=== PATIENT | female | born 1965 | race Caucasian/White ===

== ENCOUNTER 2019-05-30 08:30 | Inpatient (IN) | payer MEDICARE ==
[2019-05-30] VITALS (15 sets, daily range): BP systolic 107–190; BP diastolic 65–100
[~2019-05-30] VITALS: Ht 165.1 cm; Wt 50.3 kg
--- NOTE | ~2019-05-30 | CON ---
[place], [place] REPORT OF CONSULTATION NAME: MARTHA ABDI UNIT #: [id number] ROOM: 420 DOCTOR: RAJESH RIVERA MD BIRTHDATE: [birth year] DOS: 05/30/2019 GASTROENDOSCOPIC REPORT HISTORY OF PRESENT ILLNESS: A 54-year-old patient who has presented with chief complaint of lethargy, confusion, incoherency and the patient was admitted through the Emergency Room. I have been asked for assessment of the patient in this regard of anemia, hemoglobin of 6, hematocrit 23 with microcytic indices. Her INR was 1.1. Ethyl alcohol less than 3. Comprehensive metabolic panel: GFR greater than 60. Electrolytes balanced. Liver function tests normal. Serum ammonia has been 81. The patient not producing any history, mentally unable. PAST MEDICAL HISTORY: Gastroesophageal reflux, cirrhosis, colon cancer. Apparently, per records, scoliosis, neuropathy, and peptic ulcer disease. PAST SURGICAL HISTORY: Colon resection. SOCIAL HISTORY: Alcohol heavy consumption. Nonsmoker. ALLERGIES: No known medications. MEDICATIONS: List Xifaxan and lactulose. REVIEW OF SYSTEMS: Cannot be obtained from her meaningfully. PHYSICAL EXAMINATION: GENERAL: Relatively frail patient. HEENT: Head normocephalic, nontraumatic. Mouth and buccal mucosa benign. NECK: Supple, no thyromegaly, no cervical lymphadenopathy. CHEST: Symmetric anatomy, equal expansion. No wheeze, no rhonchi. HEART: Normal sinus rhythm, no gallop, no murmur. ABDOMEN: Soft. No hepato-organomegaly. Bowel sounds present. No pulsatile mass. EXTREMITIES: No cyanosis, no pedal edema. NEUROLOGIC: Alert, disoriented. LABORATORY DATA: Reviewed. Records reviewed. IMPRESSION: Profound anemia, cirrhotic history with hepatic encephalopathy. EtOH history. PLAN AND DISCUSSION: Endoscopic assessment of upper GI tract in view of profound anemia, hemoglobin 6. [place], [place] REPORT OF CONSULTATION NAME: MARTHA ABDI UNIT #: [id number] ROOM: 420 DOCTOR: RAJESH RIVERA MD BIRTHDATE: [birth year] NASROLLAH JAHDI, MD CM:CONSTR:REPORT OF CONSULTATION 1819 05/31/19 0135 interface
--- NOTE | ~2019-05-30 | O ---
[place], [place] OPERATIVE NOTE NAME: MARTHA BADI UNIT #: [id number] ROOM: 420 DOCTOR: RAJESH RIVERA MD BIRTHDATE: [birth year] DOS: 05/30/2019 INDICATIONS: A 54-year-old patient who has presented with confusion, profound anemia, undergoing investigation. PROCEDURE: Today's procedure part of investigation is panendoscopy plus biopsy. PREMEDICATION: Propofol. SCOPE: Olympus forward-viewing gastroscope Q10 video. REPORT: After putting the patient in left lateral position and application of lubricant to the scope, the scope was introduced. Thereafter, under direct visualization, advanced through the length of esophagus without difficulty. Gastric pouch was entered. Evidence of gastritis and presence of blood in the stomach was noticed as we approached toward the deep pyloric ring ulceration into the duodenal bulb very large as well was noticed. Photographed margin of which was biopsied. Air was suctioned out. The patient was extubated, tolerated the procedure well. IMPRESSION: Gastritis and presence of blood in the gastric pouch, large deep duodenal ulcers, status post biopsy. PLAN AND DISCUSSION: Protonix 40 mg b.i.d., Carafate slurry 2 grams q.i.d. Ice cream, milk shake diet and ice chips and clinical reassessment, transfusion, and stabilization. RAJESH RIVERA MD CM:OPRECORD:OPERATIVE NOTE [id number] RAJESH RIVERA MD 05/30/[id number] interface
--- NOTE | 2019-05-30 09:00 | NUR ---
PATIENT DENIES ANY WOUNDS ON PATIENT AT THIS TIME. HE IS A&OX4.
--- NOTE | 2019-05-30 09:20 | NUR ---
PATIENT REFUSING TO DRINK THE LACTULOSE FROM [facility]UP. ATTEMPTED TO GIVE DORETHA ORAL SYRINGE AND SHE DID DRINK IT.
[2019-05-30 09:24] LABS: HEMATOCRIT 23.9 % (37.0-47.0); MEAN CELL VOLUME 79.4 fl (81.0-99.0); MEAN CORPUSCULAR HGB 22.6 pg (27.0-31.0); MEAN CORPUSCULAR HGB CONC 28.5 g/dl (33.0-37.0); MEAN PLATELET VOLUME 9.1 fl (9.6-12.3); PLATELET COUNT AUTOMATED 94 10*3/uL (130-400); RED BLOOD COUNT 3.01 10*6/uL (4.10-5.10); RED CELL DISTRI WIDTH 16.2 % (0-14.5); WHITE BLOOD COUNT 3.1 10*3/uL (4.8-10.8)
[2019-05-30 09:27] LABS: HEMOGLOBIN 6.8 g/dl (12.0-16.0)
[2019-05-30 09:33] LABS: ACT PARTIAL THROMBO TIME 25.4 SECONDS (20.0-32.1); INTERNATIONAL NORM RATIO 1.1 (2.0-3.5)
[2019-05-30 09:38] LABS: ALBUMIN 2.6 gm/dl (3.1-4.5); ALKALINE PHOSPHATASE 114 U/L (45-117); BUN 17 mg/dl (7-24); CHLORIDE 114 mmol/L (98-107); CREATININE 0.81 mg/dL (0.55-1.02); POTASSIUM 4.1 mmol/L (3.5-5.1); SGOT/AST 35 IU/L (3-35); SGPT/ALT 32 U/L (12-78); SODIUM 142 mmol/L (136-145); TOTAL PROTEIN 5.9 gm/dL (6.4-8.2)
--- NOTE | 2019-05-30 09:43 | NUR ---
CRITICAL AMMONIA [address] CALL[address] AT THIS TIME[address] BUITRAGO NOTIFIED.
--- NOTE | 2019-05-30 09:48 | NUR ---
PATIENT STILL CONTINUOUSLY SAYING "OW" THIS NURSE KEEPS ASKING IF SHE IS IN PAIN AND SHE DENIES.
[2019-05-30 09:51] LABS: BASOPHILS 2 % (0-1); MICROCYTOSIS SLIGHT; PLATELET SUFFICIENCY LOW (NORMAL); POLYCHROMASIA SLIGHT; TOTAL CELLS COUNTED 100 #CELLS
--- NOTE | 2019-05-30 10:12 | NUR ---
BEDSIDE REPORT GIVEN TO AMARIS RILEY AT THIS TIME. PATIENT JUST NOW STATES THAT HER "BUTTOCK AREA" IS HURTING HER AFTER MULTIPLE TIMES OF ASKING IF SHE WAS IN PAIN AND WHAT WAS HURTING.
--- NOTE | 2019-05-30 10:20 | NUR ---
A 54, admitted to 4E, under the services of ESTELITA Winston DO with a diagnosis of GI BLEED . Chief complaint is CHANGE IN MENTAL STATUS . Patient arrived via stretcher from ER. Monitor applied. Initial assessment completed. Vital signs taken and recorded. ESTELITA WINSTON DO notified of admission to the unit. Orders received. See assessment for past medical history, medications and allergies. Patient and/or family oriented to unit. [facility] visitation policy reviewed. Clothing/patient valuable form completed. RODOLFO FERNANDEZ
--- NOTE | 2019-05-30 11:00 | NUR ---
ASSUMED CARE FOR THIS PT AT THIS TIME. PT YELLING OUT. INCONTINENT OF LIQUID LIGHT KHOURY STOOL. PT ALERT TO PERSON/TIME. BED ALARM ON W/CALL LIGHT IN REACH.
[2019-05-30] MEDS ORDERED: XIFAXAN550 MG PO (11:43)
[2019-05-30] MEDS ORDERED: CEPHULAC10 GM/151 PO (11:43)
--- NOTE | 2019-05-30 12:50 | NUR ---
PT YELLING OUT. PT STATES HER ABD HURTS. PT MEDICATED W/MORPHINE AT THIS TIME.
--- NOTE | 2019-05-30 13:16 | NUR ---
Dr. RIVERA consulted for GI BLEED. WILL SEE PT TODAY. KEEP NPO FOR POSSIBLE EGD TODAY. DEB SARGENT
--- NOTE | 2019-05-30 15:00 | NUR ---
PHYSICAL THERAPY Pt currently in too much pain and continuously yelling out in pain. Will attempt at a later time. Thank you Octavia Whitfield, PT, DPT
--- NOTE | 2019-05-30 17:24 | NUR ---
DR. RIVERA PHONED AND T.O. RCVD TO ADD PT ON TODAY FOR EGD.
--- NOTE | 2019-05-30 17:30 | NUR ---
, [employer] PHONED FOR EGD CONSENT. CONSENT GIVEN TO TWO RN'S. STATES HE IS FLYING HOME TOMORROW EVENING AND TO KEEP HIM POSTED ON PT'S CONDITION.
--- NOTE | 2019-05-30 17:58 | NUR ---
PT LEFT FLOOR TO SURGERY FOR EGD.
--- NOTE | 2019-05-30 19:20 | NUR ---
SURGERY PHONED W/EGD REPORT FINDINGS. BLOOD IN STOMACH, PYLORIC ULCER, AND BIOPSY OBTAINED. PT TO RETURN TO FLOOR.
--- NOTE | 2019-05-30 19:25 | NUR ---
PT RETURNED TO FLOOR VIA BED. NO S/S OF DISTRESS NOTED.
[2019-05-30 20:58] LABS: BASO % 0.8 % (0.0-1.0); EOS % 1.2 % (1.0-4.0); HEMATOCRIT 24.8 % (37.0-47.0); HEMOGLOBIN 7.3 g/dl (12.0-16.0); LYMPH # 0.7 10*3/uL (1.3-4.4); LYMPH % 28.1 % (27.0-41.0); MEAN CELL VOLUME 81.6 fl (81.0-99.0); MEAN CORPUSCULAR HGB CONC 29.4 g/dl (33.0-37.0); MEAN PLATELET VOLUME 9.6 fl (9.6-12.3); MONO # 0.2 10*3/uL (0.1-1.0); MONO % 9.1 % (3.0-9.0); NEUT # 1.5 10*3/uL (2.3-7.9); NEUT % 60.8 % (47.0-73.0); PLATELET COUNT AUTOMATED 78 10*3/uL (130-400); RED BLOOD COUNT 3.04 10*6/uL (4.10-5.10); RED CELL DISTRI WIDTH 15.9 % (0-14.5); WHITE BLOOD COUNT 2.5 10*3/uL (4.8-10.8)
--- NOTE | 2019-05-30 22:20 | NUR ---
DR. LÓPEZ PHONED RE PT'S NPO STATUS AND RECEIVING LACTULOSE TO SEE IF IVF ARE NECESSARY. TO LOOK AT CHART.
--- NOTE | 2019-05-30 23:51 | NUR ---
WENT IN TO ASSESS PATIENT AFTER ASSUMING CARE. PATIENT HAD PULLED IV OUT. NEW IV PLACED IN LEFT UPPER ARM. VITAL SIGNS OBTAINED. MANUAL BP IN RIGHT ARM IS 190/100, MANUAL IN LEFT ARM IS 182/100, AUTOMATIC OF 181/101. DR LÓPEZ NOTIFIED.
[2019-05-31] VITALS: BP 125/75
--- NOTE | 2019-05-31 02:31 | NUR ---
PATIENT AWAKE AND CONTINUOUSLY TURNING ASSISTANT AT SURGERY LIGHT. NO TRUE CONCERNED NOTED. PATIENT IS STILL VERY CONFUSED AT THIS TIME. NO OBVIOUS S/S OF DISTRESS. CALL LIGHT STILL WITHIN REACH. BED ALARM ARMED.
[2019-05-31 06:07] LABS: ALBUMIN 2.5 gm/dl (3.1-4.5); ALKALINE PHOSPHATASE 102 U/L (45-117); BUN 14 mg/dl (7-24); CHLORIDE 119 mmol/L (98-107); CHOLESTEROL 105 mg/dL (<200); CREATININE 0.72 mg/dL (0.55-1.02); HDL CHOLESTEROL 51 mg/dl (40-60); LDL CHOLESTEROL 39 mg/dL (9-159); PHOSPHOROUS 2.7 mg/dL (2.5-4.9); POTASSIUM 3.4 mmol/L (3.5-5.1); SGOT/AST 31 IU/L (3-35); SGPT/ALT 30 U/L (12-78); SODIUM 147 mmol/L (136-145); TOTAL PROTEIN 5.8 gm/dL (6.4-8.2); TRIGLYCERIDES 76 mg/dl (<150); VLDL CHOLESTEROL 15 mg/dL (6-40)
[2019-05-31 06:19] LABS: BASO % 1.1 % (0.0-1.0); EOS # 0.2 10*3/uL (0.0-0.4); EOS % 8.2 % (1.0-4.0); HEMATOCRIT 24.7 % (37.0-47.0); HEMOGLOBIN 7.1 g/dl (12.0-16.0); LYMPH # 0.6 10*3/uL (1.3-4.4); LYMPH % 21.3 % (27.0-41.0); MEAN CELL VOLUME 81.3 fl (81.0-99.0); MEAN CORPUSCULAR HGB 23.4 pg (27.0-31.0); MEAN CORPUSCULAR HGB CONC 28.7 g/dl (33.0-37.0); MEAN PLATELET VOLUME 10.1 fl (9.6-12.3); MONO # 0.2 10*3/uL (0.1-1.0); MONO % 6.7 % (3.0-9.0); NEUT # 1.7 10*3/uL (2.3-7.9); NEUT % 62.3 % (47.0-73.0); PLATELET COUNT AUTOMATED 89 10*3/uL (130-400); RED BLOOD COUNT 3.04 10*6/uL (4.10-5.10); RED CELL DISTRI WIDTH 15.7 % (0-14.5); WHITE BLOOD COUNT 2.7 10*3/uL (4.8-10.8)
[2019-05-31 08:00] VITALS: BP 120/69
[2019-05-31 12:00] VITALS: BP 122/66
--- NOTE | 2019-05-31 18:44 | NUR ---
DR HORTON NOTIFIED OF PT ON HER MENSTRAL CYCLE. NO BLOOD NOTED FORM RECTUM AT THIS TIME.
[2019-05-31 20:00] VITALS: BP 124/68
--- NOTE | 2019-05-31 20:30 | NUR ---
PATIENT CALL OUT AND SCREAMING OUCH, OUCH, OUCH BUT COULD NOT TELL ME WHAT WAS HURTING MEDICATED WITH MORPHINE ORDERED.
--- NOTE | 2019-05-31 23:00 | NUR ---
ASSUMED CARE FOR THIS PT AT THIS TIME. PT RESTING QUIETLY IN BED. BED ALARM ON W/CALL LIGHT IN REACH.
[2019-06-01] VITALS: BP 132/56
[2019-06-01 06:15] LABS: BASO % 0.3 % (0.0-1.0); EOS # 0.2 10*3/uL (0.0-0.4); EOS % 7.7 % (1.0-4.0); HEMATOCRIT 24.3 % (37.0-47.0); HEMOGLOBIN 7.3 g/dl (12.0-16.0); LYMPH # 0.9 10*3/uL (1.3-4.4); LYMPH % 29.7 % (27.0-41.0); MEAN CELL VOLUME 80.7 fl (81.0-99.0); MEAN CORPUSCULAR HGB 24.3 pg (27.0-31.0); MEAN PLATELET VOLUME 10.1 fl (9.6-12.3); MONO # 0.3 10*3/uL (0.1-1.0); MONO % 8.7 % (3.0-9.0); NEUT # 1.7 10*3/uL (2.3-7.9); NEUT % 53.6 % (47.0-73.0); PLATELET COUNT AUTOMATED 84 10*3/uL (130-400); RED BLOOD COUNT 3.01 10*6/uL (4.10-5.10); WHITE BLOOD COUNT 3.1 10*3/uL (4.8-10.8)
[2019-06-01 06:28] LABS: BUN 13 mg/dl (7-24); CHLORIDE 118 mmol/L (98-107); POTASSIUM 3.9 mmol/L (3.5-5.1); SODIUM 146 mmol/L (136-145)
--- NOTE | 2019-06-01 06:50 | NUR ---
DR. LÓPEZ NOTIFIED OF PT'S CRITICAL AMMONIA LEVEL OF 62.
[2019-06-01 08:00] VITALS: BP 114/62
--- NOTE | 2019-06-01 08:29 | NUR ---
PT RESTING IN BED. NO DISTRESS NOTED. WILL MONITOR
--- NOTE | 2019-06-01 09:00 | NUR ---
Boring Machine Operator Production in to talk to patient. Patient states lives at home with . There are few steps in the home. Physician: out of state Pharmacy: out of state Home health services: none Patient's level of ADLs: MINIMAL ASSIST Patient has working utilities: all working DME: none Follow-up physician's appointment after d/c: will be made by hospitalist nurse director upon discharge Does patient want to access PORTAL?: no Discharge plan discussed with patient, patient's sister was present, patient lives at home with , she lives in [place] and was in the area visiting when she became sick, her needed to return to work and left for [place] yesterday, sister Nicole stated patient would be discharged to her house when medically stable until she could get her a flight back to [place]. sister stated they didn't have any home needs at this time. PIETER ALMENDAREZ
--- NOTE | 2019-06-01 11:30 | NUR ---
Occupational Therapy evaluation completed on 4 with full eval to follow. Precautions include fall risk; bed alarm,impaired cognition,IV UE,moderate complexity level 48548 via chart review, testing and evaluation. Recommend OT per pOC and SNF v.s home with home health SN, OT,PT and 24 hr supervision and assist. Thank you. Nusrat Humphrey OTR/L
[2019-06-01 12:00] VITALS: BP 119/60
--- NOTE | 2019-06-01 15:00 | NUR ---
PHYSICAL THERAPY Physical therapy evaluation completed, 4E. Full details to follow. Moderate complexity determined after chart review/evaluation, [address]. PT to work on strength, gait, transfers, balance, and safety using FWW. Recommending SNF or home with 24 hour assistance at discharge. thank you Octavia Whitfiled, PT, DPT
[2019-06-01 16:00] VITALS: BP 129/76
[2019-06-01 20:00] VITALS: BP 123/66
[2019-06-02] VITALS: BP 112/72
[2019-06-02 06:37] LABS: BASO % 0.6 % (0.0-1.0); EOS # 0.2 10*3/uL (0.0-0.4); HEMATOCRIT 25.2 % (37.0-47.0); HEMOGLOBIN 7.4 g/dl (12.0-16.0); LYMPH # 0.8 10*3/uL (1.3-4.4); LYMPH % 25.7 % (27.0-41.0); MEAN CELL VOLUME 79.7 fl (81.0-99.0); MEAN CORPUSCULAR HGB 23.4 pg (27.0-31.0); MEAN CORPUSCULAR HGB CONC 29.4 g/dl (33.0-37.0); MEAN PLATELET VOLUME 10.5 fl (9.6-12.3); MONO # 0.3 10*3/uL (0.1-1.0); MONO % 9.8 % (3.0-9.0); NEUT # 1.8 10*3/uL (2.3-7.9); NEUT % 56.6 % (47.0-73.0); PLATELET COUNT AUTOMATED 98 10*3/uL (130-400); RED BLOOD COUNT 3.16 10*6/uL (4.10-5.10); RED CELL DISTRI WIDTH 15.9 % (0-14.5); WHITE BLOOD COUNT 3.2 10*3/uL (4.8-10.8)
[2019-06-02 06:49] LABS: ALBUMIN 2.4 gm/dl (3.1-4.5); ALKALINE PHOSPHATASE 115 U/L (45-117); BUN 11 mg/dl (7-24); CHLORIDE 112 mmol/L (98-107); CREATININE 0.78 mg/dL (0.55-1.02); POTASSIUM 3.5 mmol/L (3.5-5.1); SGOT/AST 35 IU/L (3-35); SGPT/ALT 31 U/L (12-78); SODIUM 144 mmol/L (136-145); TOTAL PROTEIN 5.5 gm/dL (6.4-8.2)
[2019-06-02 08:00] VITALS: BP 110/66; BP 116/62
--- NOTE | 2019-06-02 08:24 | NUR ---
SPOKE WITH DR RIVERA. HE REQUESTED THE PATIENT'S DIET BE ADVANCED TO A GERD DIET.
--- NOTE | 2019-06-02 09:00 | NUR ---
case management visits with patient, she will return to her family's home when medically stable until her is able to return from [place] to fly with her back to [place], no other needs at this time
--- NOTE | 2019-06-02 09:36 | NUR ---
24 HR chart check completed.
--- NOTE | 2019-06-02 10:15 | NUR ---
OT NOTE Pt was seen this A.M. 1:1 for 15 minute OT session. Upon arrival pt was supine in bed. Pt identified by name and and had no complaints at this time. Pt transferred supine to sit EOB with SBA. Sit to stand completed from the bed level with CGA for safety and use of w/w for UE support. Functional mobility was then completed into the bathroom with CGA and use of w/w. There she transferred on/off standard commode with CGA for safety. Clothing management completed with CGA and toilet hygiene completed with supervision while seated. Pt then stood sink side while washing her hands with CGA, pt had one LOB that occured backwards that required Lynda to correct. Functional mobility was then completed back to the EOB where she transferred sit to supine with SBA. There she was left with call light in hand, tray table in place, and bed alarm activated for safety. Continue with rec D/C plan to SNF versus home with home health. HARPREET Richards/Gabriel
--- NOTE | 2019-06-02 11:08 | NUR ---
PHYSICAL THERAPY Patient presented to therapy in supine with head of bed elevated and bed alarm activated. Patient was identified by name and on wristband. Patient gives informed consent for treatment. Patient performed supine to sitting at EOB with SBA. Patient sat on EOB unassisted. Patient did not appear confused at this time. Patient sit to stand transfer with SBA. Patient ambulated with Wh Walker and Close Supervision for 200' x 1 and minimal episodes of LOB, which she corrected herself. Patient performed ascending and descending stairs x 10 with CGA X 1, without difficulty and no LOB. Patient transferred back to supine in bed with SBA. Patient was left in supine in bed with bed alarm activated, call light within reach, and tray table near patient. Patient was 1:1 with this PHARMACOGNOSIST for 23 minutes total. SHAGGY PEARSON PHARMACOGNOSIST
--- NOTE | 2019-06-02 11:30 | NUR ---
PATIENT'S SISTER IN LAW INFORMED ME THAT SHE WILL BE THE PERSON IN CHARGE OF PICKING PATIENT UP TOMORROW IF THE DOCTOR DISCHARGES HER. SHE WANTS TO BE CONTACTED IF PATIENT IS TO BE DISCHARGED SO SHE CAN PICK HER UP.
[2019-06-02 12:00] VITALS: BP 120/64; BP 122/76
[2019-06-02 16:00] VITALS: BP 117/65
[2019-06-02 20:00] VITALS: BP 121/73
[2019-06-03] VITALS: BP 122/79
[2019-06-03 06:01] LABS: BASO % 0.7 % (0.0-1.0); EOS # 0.2 10*3/uL (0.0-0.4); EOS % 6.3 % (1.0-4.0); HEMATOCRIT 23.7 % (37.0-47.0); LYMPH # 0.6 10*3/uL (1.3-4.4); LYMPH % 18.9 % (27.0-41.0); MEAN CELL VOLUME 79.8 fl (81.0-99.0); MEAN CORPUSCULAR HGB 23.6 pg (27.0-31.0); MEAN CORPUSCULAR HGB CONC 29.5 g/dl (33.0-37.0); MEAN PLATELET VOLUME 9.1 fl (9.6-12.3); MONO # 0.3 10*3/uL (0.1-1.0); MONO % 9.3 % (3.0-9.0); NEUT % 64.8 % (47.0-73.0); PLATELET COUNT AUTOMATED 72 10*3/uL (130-400); RED BLOOD COUNT 2.97 10*6/uL (4.10-5.10); RED CELL DISTRI WIDTH 16.2 % (0-14.5)
--- NOTE | 2019-06-03 06:25 | NUR ---
DR. LÓPEZ NOTIFIED OF CRITICAL AMMONIA LEVEL. PATIENT CONDITION REVIEWED.
--- NOTE | 2019-06-03 07:05 | NUR ---
ARRIVED ON SHIDT, INTRODUCED TO PATIENT, BEDSIDE REPORT RECEIVED, NO NEEDS VOICED AT THIS TIME, WHITE BOARD UPDATED.
--- NOTE | 2019-06-03 07:36 | NUR ---
Shift chart check completed.
[2019-06-03 08:00] VITALS: BP 112/64
--- NOTE | 2019-06-03 08:46 | NUR ---
OT NOTE Pt was seen this A.M. 1:1 for 16 minute OT session. Upon arrival pt was supine in bed. Pt identified by name and and had no complaints at this time. Pt transferred supine to sit EOB with SBA. While sitting EOB pt donned B socks with SBA. Sit to stand then completed from the bed level with CGA and use of w/w for UE support. Challenged pt's static standing tolerance needed for increased I in self care tasks and functional transfers, pt was able to tolerate aprox 5 minutes at a time before sitting due to fatigue. Functional mobility completed to the bathroom and back with CGA and use of w/w, pt had one LOb that occured while turning due to being impsulsive. Educated pt on importance of slowing down for enhanced safety, pt had fair carry over. Functional mobility was then completed back to the EOB where she transferred sit to supine with SBA. There she was left with call light in hand, tray table in place, and bed alarm activated for safety. Continue with POC as able. HARPREET Richards/Gabriel
--- NOTE | 2019-06-03 09:00 | NUR ---
case management visits with patient, she states she will be returning home to [place] when medically stable, she stated she would be going to her family's house until she can get a plane ticket to [place], she stated her is not flying back to accompany her home, she states her family will accompany her to the airport and help her board the airplane and they will have people at other airports ready to help her and place her on the next airplane, she denies any needs at this time
--- NOTE | 2019-06-03 09:00 | NUR ---
PHYSICAL THERAPY Patient seen this am 1:1 for therapy visit and was supine in bed upon therapist arrival. Patient identified by name / and was very pleasnat this morning, transfering supine to sit EOB with CGA. Patient then transfers sit to stand CGA and ambulates with use of wh walker, 50'x 2, CGA, demonstrating increased gait velocity. Patient tolerated eyes open / closed without LOB and single leg stance, L side 2 seconds, R side 2 seconds tolerance prir to LOB. Patient returned to supine in bed and remained with call light, tray table, telephone and bed alarm for safety. Will continue per POC as tolerated, total treatment time 16 minutes. Narayan Cervantes, HOSPICE MUSIC THERAPIST
[2019-06-03 12:00] VITALS: BP 112/64
--- NOTE | 2019-06-03 13:04 | NUR ---
OT NOTE Pt was seen this P.M. 1:1 for second OT session consisting of 14 minutes. Upon arrival pt was supine in bed. Pt identified by name and and had no complaints at this time. Pt transferred supine to sit EOB with SBA. Sit to stand completed from bed level with CGA and use of w/w for UE support. Upon inital rise pt had one LOB backwards that required Lynda to correct. Educated pt on importance of slow rise and slowing down with all tasks to decrease risk of falling. Functional mobility was completed into the bathroom with SBA and use of w/w. There she transferred on/off standard commode with CGA for safety. While standing sink side pt doffed gown with SBA and donned new gown with SBA. Pt then stood sink side while washing her face and completing hair care with SBA. While reaching overhead during hair care pt had LOB backwards that required Lynda to correct. Functional mobility was then completed back to the EOB where she transferred sit to supine with SBA. There she was left with call light in hand, tray table in place, and bed alarm activated for safety. Continue with POC as able. HARPREET Richards/Gabriel
[2019-06-03 16:00] VITALS: BP 111/70
--- NOTE | 2019-06-03 16:03 | NUR ---
PHYSICAL THERAPY CO-SIGN I approve of the Physical Therapy notes written above. Octavia Whitfield, PT, DPT
[2019-06-03 20:00] VITALS: BP 128/77
[2019-06-04] VITALS: BP 109/70
[2019-06-04 06:31] LABS: BASO % 0.7 % (0.0-1.0); EOS # 0.3 10*3/uL (0.0-0.4); HEMATOCRIT 25.9 % (37.0-47.0); HEMOGLOBIN 7.6 g/dl (12.0-16.0); LYMPH # 0.8 10*3/uL (1.3-4.4); LYMPH % 19.2 % (27.0-41.0); MEAN CELL VOLUME 78.7 fl (81.0-99.0); MEAN CORPUSCULAR HGB 23.1 pg (27.0-31.0); MEAN CORPUSCULAR HGB CONC 29.3 g/dl (33.0-37.0); MONO # 0.3 10*3/uL (0.1-1.0); MONO % 7.7 % (3.0-9.0); NEUT # 2.8 10*3/uL (2.3-7.9); NEUT % 65.2 % (47.0-73.0); RED BLOOD COUNT 3.29 10*6/uL (4.10-5.10); RED CELL DISTRI WIDTH 16.3 % (0-14.5); WHITE BLOOD COUNT 4.3 10*3/uL (4.8-10.8)
[2019-06-04 06:39] LABS: ALBUMIN 2.6 gm/dl (3.1-4.5); ALKALINE PHOSPHATASE 114 U/L (45-117); BUN 15 mg/dl (7-24); CHLORIDE 111 mmol/L (98-107); CREATININE 0.93 mg/dL (0.55-1.02); POTASSIUM 3.7 mmol/L (3.5-5.1); SGOT/AST 45 IU/L (3-35); SGPT/ALT 39 U/L (12-78); SODIUM 141 mmol/L (136-145); TOTAL PROTEIN 5.8 gm/dL (6.4-8.2)
[2019-06-04 06:40] LABS: PLATELET COUNT AUTOMATED 114 10*3/uL (130-400)
--- NOTE | 2019-06-04 06:54 | NUR ---
DR LÓPEZ NOTIFIED OF CRITICAL AMMONIA
[2019-06-04 08:00] VITALS: BP 109/65
--- NOTE | 2019-06-04 08:48 | NUR ---
Patient resting quietly with no c/o discomfort. Respirations easy and regular. Vital signs stable. No overt distress. Continue to monitor pt. CHRYSTAL BRAUN
[2019-06-04] MEDS ORDERED: CEPHULAC10 GM/151 PO (11:36)
[2019-06-04] MEDS ORDERED: CARAFATE1 GM PO (11:47)
[2019-06-04] MEDS ORDERED: PANTOPRAZOLE SO40 MG PO (11:48)
--- NOTE | 2019-06-04 12:22 | NUR ---
PT IS NONMONITORED. IV REMOVED WITHOUT COMPLICATIONS. ALL BELONGINGS SENT HOME WITH PT. SCRIPTS GIVEN TO PT. DISCHARGE INSTRUCTIONS EXPLAINED AND A COPY WAS PROVIDED TO THE PT. ALL QUESTIONS ANSWERED. PT DISCHARGED WITH FAMILY MEMBER AT THIS TIME IN WHEELCHAIR.
--- NOTE | 2019-06-04 13:24 | NUR ---
PHYSICAL THERAPY Patient sitting on EOB when BALLOON DIPPER entered room. Transfer training- patient performed multiple sit<>stand and SPT transfers requiring SBA/S. Patient peformed gait training with use of FWW and SBA/S-- for strength, endurance and balance ~100'x2. Seated rest breaks provided. Patient demo instability during directional changes requiring cues for pacing and safety with walker proximity/management. Pt performed standing B LE ther-ex, with 2xUE support on walker and SBA- for strength, balance and endurance: marches, heel raises, mini squats, hip ext/flex x 15 reps.Intermittent rest breaks provided, due to fatigue. Pt benefits from cues for postural awareness and technique. Patient sitting EOB at session end with call light within reach. Pt voiced no c/o's this date. Janey Espinoza PTA
--- NOTE | 2019-06-06 08:06 | NUR ---
PHYSICAL THERAPY CO-SIGN I approve of the Physical Therapy notes written above. Octavia Whitfield, PT, DPT
--- NOTE | 2019-06-06 09:22 | NUR ---
OCCUPATIONAL THERAPY CO-SIGN I approve of the Occupational Therapy notes written above. KOSTAS PRETTY OTR/Gabriel
== END 2019-06-04 12:22 | disposition home or self-care (01) | DRG 441 ==
LOC: ED 08:30 → 4E 09:48 → EDHOLD 09:48 → 4E 10:04
PROVIDERS: Emergency Medicine; Student in an Organized Health Care Education/Training Program; ADMIT Internal Medicine
PROC: 30233N1 Transfusion of Nonautologous Red Blood Cells into Peripheral Vein, Percutaneous Approach (ICD-10-PCS; principal; 2019-05-30)
PROC: 0DB98ZX Excision of Duodenum, Via Natural or Artificial Opening Endoscopic, Diagnostic (ICD-10-PCS; principal; 2019-05-30)
DX: K72.90 Hepatic failure, unspecified without coma (principal); G93.41 Metabolic encephalopathy; K26.4 Chronic or unspecified duodenal ulcer with hemorrhage; E43 Unspecified severe protein-calorie malnutrition; K29.71 Gastritis, unspecified, with bleeding; D61.818 Other pancytopenia; E72.20 Disorder of urea cycle metabolism, unspecified; R65.10 Systemic inflammatory response syndrome (SIRS) of non-infectious origin without acute organ dysfunction; Z68.1 Body mass index [BMI] 19.9 or less, adult; D50.9 Iron deficiency anemia, unspecified; K70.30 Alcoholic cirrhosis of liver without ascites; R73.9 Hyperglycemia, unspecified; K21.9 Gastro-esophageal reflux disease without esophagitis; G62.9 Polyneuropathy, unspecified; M41.9 Scoliosis, unspecified; E87.8 Other disorders of electrolyte and fluid balance, not elsewhere classified; K22.70 Barrett's esophagus without dysplasia; Z85.038 Personal history of other malignant neoplasm of large intestine; Z92.3 Personal history of irradiation; Z92.21 Personal history of antineoplastic chemotherapy; Z87.11 Personal history of peptic ulcer disease; Z82.49 Family history of ischemic heart disease and other diseases of the circulatory system; Z79.899 Other long term (current) drug therapy